=== PATIENT | female | born 1995 | race Caucasian/White ===

== ENCOUNTER 2017-03-22 23:49 | Emergency (ER) | payer SELFPAY ==
[~2017-03-22] VITALS: Ht 167.6 cm; Wt 60.8 kg
[~2017-03-22 23:49] MED LIST: FAMO-63 PO; IBUP-1060 PO; METO10TA81 PO
[2017-03-23 00:11] VITALS: BP 104/56
--- NOTE | 2017-03-23 00:15 | PHYS DOC ---
Past Medical History Past Medical History: No Pertinent History Past Surgical History: No Surgical History Smoking: Cigarettes Alcohol Use: None Drug Use: None Adult General Chief Complaint Chief Complaint: PLEURISY HPI HPI Patient is a 21 year old female who presents with chest pain. Chest pain started last Thursday on March 17. The pain has been sharp and constant in the center of her chest and is moderate. She was seen at [facility] emergency department on 03/20/2017 with negative EKG. She denies any recent travel. Little cough and no hemoptysis. Nausea no vomiting. Denies . Does smoke tobacco. Review of Systems Review of Systems Constitutional: Denies fever or chills Eyes: Denies change in visual acuity, redness, or eye pain HENT: Denies nasal congestion or sore throat Respiratory: slight cough but NO shortness of breath Cardiovascular: see HPI GI: Denies abdominal pain, nausea, vomiting, bloody stools or diarrhea : Denies dysuria or hematuria; "hard to urinate" Musculoskeletal: Denies back pain or joint pain Integument: Denies rash or skin lesions Neurologic: Denies headache, focal weakness or sensory changes Allergies Allergies Allergies Coded Allergies Type Severity Reaction Last Updated Verified No Known Drug Allergies 01/03/15 No Physical Exam Physical Exam Constitutional: Well developed, well nourished, no acute distress, non-toxic appearance. HENT: Normocephalic, atraumatic, bilateral external ears normal, oropharynx moist, no oral exudates, nose normal. Eyes: PERRLA, EOMI, conjunctiva normal, no discharge. Neck: Normal range of motion, no tenderness, supple, no stridor. Cardiovascular:Heart rate regular rhythm, no murmur Lungs & Thorax: Bilateral breath sounds clear to auscultation Abdomen: Bowel sounds normal, soft, no tenderness, no masses, no pulsatile masses. Skin: Warm, dry, no erythema, no rash. Back: No tenderness, no CVA tenderness. Extremities: No tenderness, no cyanosis, no clubbing, ROM intact, no edema. Neurologic: Alert and oriented X 3, normal motor function, normal sensory function, no focal deficits noted. Psychologic: Affect normal, judgement normal, mood normal. Current Patient Data Vital Signs Vital Signs Date Time Temp Pulse Resp B/P (MAP) Pulse Ox O2 Delivery O2 Flow Rate FiO2 03/23/17 00:11 97.8 66 16 104/56 (72) 100 Room Air 97.8 Lab Values Laboratory Tests Test 03/23/17 00:28 03/23/17 00:41 White Blood Count 6.6 x10^3/uL (4.0-11.0) Red Blood Count 4.83 x10^6/uL (3.50-5.40) Hemoglobin 14.8 g/dL (12.0-15.5) Hematocrit 42.3 % (36.0-47.0) Mean Corpuscular Volume 88 fL (79-100) Mean Corpuscular Hemoglobin 31 pg (25-35) Mean Corpuscular Hemoglobin Concent 35 g/dL (31-37) Red Cell Distribution Width 12.5 % (11.5-14.5) Platelet Count 180 x10^3/uL (140-400) Neutrophils (%) (Auto) 53 % (31-73) Lymphocytes (%) (Auto) 40 % (24-48) Monocytes (%) (Auto) 5 % (0-9) Eosinophils (%) (Auto) 2 % (0-3) Basophils (%) (Auto) 1 % (0-3) Neutrophils # (Auto) 3.5 x10^3uL (1.8-7.7) Lymphocytes # (Auto) 2.6 x10^3/uL (1.0-4.8) Monocytes # (Auto) 0.3 x10^3/uL (0.0-1.1) Eosinophils # (Auto) 0.1 x10^3/uL (0.0-0.7) Basophils # (Auto) 0.1 x10^3/uL (0.0-0.2) D-Dimer (Wanda) < 0.27 ug/mlFEU Urine Collection Type Unknown Urine Color Yellow Urine Clarity Clear Urine pH 8.0 Urine Specific Dahlgren 1.010 Urine Protein Negative mg/dL (NEG-TRACE) Urine Glucose (UA) Negative mg/dL (NEG) Urine Ketones (Stick) Negative mg/dL (NEG) Urine Blood Negative (NEG) Urine Nitrite Negative (NEG) Urine Bilirubin Negative (NEG) Urine Urobilinogen Dipstick 1.0 mg/dL (0.2 mg/dL) Urine Leukocyte Esterase Trace (NEG) Urine RBC Occ /HPF (0-2) Urine WBC 1-4 /HPF (0-4) Urine Squamous Epithelial Cells Mod /LPF Urine Bacteria Few /HPF (0-FEW) Urine Mucus Slight /LPF Sodium Level 140 mmol/L (136-145) Potassium Level 3.7 mmol/L (3.5-5.1) Chloride Level 105 mmol/L (98-107) Carbon Dioxide Level 26 mmol/L (21-32) Anion Gap 9 (6-14) Blood Urea Nitrogen 14 mg/dL (7-20) Creatinine 0.8 mg/dL (0.6-1.0) Estimated GFR (Cockcroft-Gault) 91.4 BUN/Creatinine Ratio 18 (6-20) Glucose Level 95 mg/dL (70-99) Calcium Level 9.0 mg/dL (8.5-10.1) Total Bilirubin 0.5 mg/dL (0.2-1.0) Aspartate Amino Transferase (AST) 17 U/L (15-37) Alanine Aminotransferase (ALT) 16 U/L (14-59) Alkaline Phosphatase 71 U/L (46-116) Creatine Kinase 63 U/L (26-192) Creatine Kinase MB (Mass) < 0.5 ng/mL (0.0-3.6) Creatine Kinase MB Relative Index 0.8 % (0-4) Troponin I Quantitative < 0.017 ng/mL (0.000-0.055) DF-Dxm-G-Type Natriuretic Peptide 27 pg/mL (0-124) Total Protein 6.6 g/dL (6.4-8.2) Albumin 4.0 g/dL (3.4-5.0) Albumin/Globulin Ratio 1.5 (1.0-1.7) Lipase 183 U/L (73-393) Serum Test, Qualitative Negative (NEG) POC Urine HCG, Qualitative Hcg negative (Negative) Laboratory Tests 03/23/17 00:28 Laboratory Tests 03/23/17 00:28 EKG EKG EKG interpreted by myself at 0003 AM: Normal sinus rhythm, rate of 62, no acute ST changes. Radiology/Procedures Radiology/Procedures Chest x-ray interpreted by myself at 0100 AM shows normal mediastinum, normal cardiac silhouette. No pleural effusion. No pneumothorax. Clear lung sabillon. Course & Med Decision Making Course & Med Decision Making Evaluated patient. EKG shows no acute changes. Reviewed the records from [facility] on March 20, 2017. EKG was performed no other evaluation. Will proceed with laboratory data as she has had persistent pain. She does smoke tobacco. No recent travel will check d-dimer. At 0125 AM: Lab is all unremarkable. Toradol 30 IV. Reviewed findings with patient. Home with follow up instructions. Naprosyn and tramadol for pain. Differential diagnosis for chest pain includes but is not limited to: Pericarditis, myocarditis, endocarditis, pneumothorax, pneumonia, aortic dissection, esophageal spasm, esophagitis, peptic ulcer disease, acute coronary syndrome, mediastinitis, Boerhaave syndrome, musculoskeletal chest wall pain, costochondritis, intercostal strain, rib fracture, pulmonary contusion, pneumonitis, pleural effusion, pericardial effusion, pericardial tamponode, and pleurisy. MACE Scoring: History: Highly suspicious (2 points); Moderately suspicious (1 point). Slightly suspicious (0 point). EKG: ST segment depression (2 points). Nonspecific repolarization disturbance ( 1 point). normal (0 point) Age: Greater than 65 (2 points), 65-45 (1 point); less than 45 years old (0 points). Risk factors:> 3 risk factors (2 points), 1-2 risk factors (one point), no risk factors (0 point). Troponin: > 2 times normal (2 points), 1-2 times normal (1 point) normal limits (0 point) Total score: ___1___ Score % pts MACE/n MACE Policy 0-3: 32% 1.9% 0.05% Discharge 4-6: 51% 413/3136 13% 1.3% Observation Risk management 7-10: 17% 518/1045 50% 2.8% Observation Treatment, CAGb PAT score for NSTEMI: Age 65: No=0; Yes=1 3 CAD risk factors: Family history of CAD, hypertension, hypercholesterolemia, diabetes, family history of CAD, or current smoker: No=0; Yes=1 Known CAD (stenosis 50%: No=0; Yes=1 ASA use in past 7 days: No=0; Yes=1 Severe angina ( 2 episodes in 24 hrs): No=0; Yes=[address] changes 0.5m: No=0; Yes=1 Positive cardiac marker: No=0; Yes=1 Score: 0 PERC RULE Criteria: Age < than 50 years-YES Heart rate < 100-YES Oxygen saturation > 95%-YES No hemoptysis-YES No estrogen use-YES No prior DVT or PE-YES No unilateral leg swelling-YES No surgery or trauma requiring hospitalization within the prior 4 weeks-YES PERC rule satisfied I have spoken with the patient and/or caregivers. I have explained the patient' s condition, diagnosis and treatment plan based on the information available to me at this time. I have answered the patient's and/or caregiver's questions and addressed any concerns. The patient and/or caregivers have as good an understanding of the patient's diagnosis, condition and treatment plan as can be expected at this point. The patient's condition is stable and appropriate for discharge from the emergency department. The patient will pursue further outpatient evaluation with the primary care physician or other designated or consulting physician as outlined in the discharge instructions. The patient and/or caregivers are agreeable to this plan of care and follow-up instructions have been explained in detail. The patient and/or caregivers have received these instructions in written format and have expressed an understanding of the discharge instructions. The patient and/or caregivers are aware that any significant change in condition or worsening of symptoms should prompt an immediate return to this or the closest emergency department or a call to 911. Dragon Disclaimer Dragon Disclaimer This electronic medical record was generated, in whole or in part, using a voice recognition dictation system. Departure Departure Impression: Primary Impression: Chest pain of uncertain etiology Disposition: 01 HOME, SELF-CARE Condition: STABLE Referrals: THEO ZAMORA Jr, MD (PCP) Patient Instructions: Chest Pain (Nonspecific), Pleurisy Additional Instructions: YOU WERE GIVEN A DOSE OF TORADOL HERE FOR THE PAIN. Scripts Tramadol Hcl/Acetaminophen (TRAMADOL-ACETAMINOPHN 37.5-325) 1 Each Tablet 1 TAB PO Q4-6HRS, #20 TAB Prov: PHILLY CAMARILLO MD 03/23/17 Naproxen (NAPROSYN) 500 Mg Tablet 1 TAB PO BID, #30 TAB 1 Refill Prov: PHILLY CAMARILLO MD 03/23/17 PHILLY CAMARILLO MD Mar 23, 2017 00:14
[2017-03-23 00:35] LABS: BASO # 0.1 x10^3/uL (0.0-0.2); BASO % 1 % (0-3); EOS % 2 % (0-3); HEMATOCRIT 42.3 % (36.0-47.0); HEMOGLOBIN 14.8 g/dL (12.0-15.5); LYMPH # 2.6 x10^3/uL (1.0-4.8); LYMPH % 40 % (24-48); MEAN CORPUSCULAR HEMOGLOBIN 31 pg (25-35); MEAN CORPUSCULAR HGB CONC 35 g/dL (31-37); MEAN CORPUSCULAR VOLUME 88 fL (79-100); MONO % 5 % (0-9); NEUT % 53 % (31-73); PLATELET COUNT 180 x10^3/uL (140-400); RED BLOOD COUNT 4.83 x10^6/uL (3.50-5.40); RED CELL DISTRIBUTION WIDTH 12.5 % (11.5-14.5); WHITE BLOOD COUNT 6.6 x10^3/uL (4.0-11.0)
[2017-03-23 00:47] LABS: BILIRUBIN,URINE NEGATIVE (NEG); GLUCOSE,URINE NEGATIVE (NEG); NEG OBC SER NEG; NITRITE,URINE NEGATIVE (NEG); POS OBC SER POS; PROTEIN,URINE NEGATIVE (NEG-TRACE)
[2017-03-23 00:55] LABS: CREATINE KINASE 63 U/L (26-192)
[2017-03-23 00:58] LABS: BACTERIA,URINE FEW /HPF (0-FEW); RBC,URINE OCC /HPF (0-2)
[2017-03-23 00:59] LABS: SQUAMOUS EPITHELIAL CELL,UR MOD /LPF
[2017-03-23 01:01] LABS: ALBUMIN/GLOBULIN RATIO 1.5 (1.0-1.7); CREATININE 0.8 mg/dL (0.6-1.0); GFR 91.4; POTASSIUM 3.7 mmol/L (3.5-5.1); TOTAL BILIRUBIN 0.5 mg/dL (0.2-1.0); TOTAL PROTEIN 6.6 g/dL (6.4-8.2)
[2017-03-23 01:13] LABS: CREATINE KINASE 62 U/L (26-192)
[2017-03-23 01:15] LABS: CKMB MASS < 0.5 ng/mL (0.0-3.6)
[2017-03-23] MEDS ORDERED: TRAM1TAB4 PO (01:29)
[2017-03-23] MEDS ORDERED: NAPR500T PO (01:29)
[2017-03-23] MEDS ORDERED: KETOROLAC 30 MG/ML INJ. IV ONE (01:30)
--- NOTE | 2017-03-23 06:10 | EKG ---
[facility] [address] [place] [address] Test Date: 2017-03-23 Test Time: 00:03:34 Pat Name: KARMEN LAW Department: Room: Gender: F Corporate Communications Manager: ANNA : 1995 Requested By: PHILLY CAMARILLO Order Number: [id number] Reading MD: Melissa Arizmendi Measurements Intervals [place] Rate: 62 P: 0 GA: 118 QRS: 20 QRSD: 74 T: 23 QT: 396 QTc: 404 Interpretive Statements SINUS RHYTHM NORMAL ECG Electronically Signed On 03-24-2017 19:24:31 CDT by Melissa Arizmendi
--- NOTE | 2017-03-23 07:23 | RAD ---
Portable chest, 03/23/2017: History: Chest pain The heart size and pulmonary vascularity are normal. The lungs are clear. There is no evidence of pleural fluid. IMPRESSION: No acute cardiopulmonary abnormality is detected.
== END 2017-03-23 01:57 | disposition home or self-care (01) ==
LOC: ER 23:49
DX: R07.9 Chest pain, unspecified (principal); F17.210 Nicotine dependence, cigarettes, uncomplicated
CPT/HCPCS: 36415; 71010; 80053; 81001; 81025; 82550; 82553; 83690; 83880; 84484; 84703; 85025; 85379; 87086; 93005; 96374; 99285; J1885

== ENCOUNTER 2018-11-29 15:07 | Observation (INO) | payer MEDICAID ==
[~2018-11-29] VITALS: Ht 165.1 cm; Wt 72.6 kg
[~2018-11-29 15:07] MED LIST changes: +NAPR-683 PO; +TRAM1TAB4 PO
[2018-11-29 16:15] LABS: BILIRUBIN,URINE NEGATIVE (NEG); CLARITY,URINE CLEAR; COLOR,URINE YELLOW; NITRITE,URINE NEGATIVE (NEG); PROTEIN,URINE NEGATIVE (NEG-TRACE)
[2018-11-29 16:26] LABS: BACTERIA,URINE FEW /HPF (0-FEW); RBC,URINE 0 /HPF (0-2); SQUAMOUS EPITHELIAL CELL,UR FEW /LPF; WBC,URINE RARE /HPF (0-4)
[2018-11-29] MEDS ORDERED: diphenhydrAMINE 50 MG/ML VIAL IVP ONE (16:30)
[2018-11-29] MEDS ORDERED: ONDANSETRON PF 4 MG/2 ML VIAL. IV PRN (16:30)
[2018-11-29] MEDS: IV RINGERS,LACTATED 1000ML 1,000 ML IV SCH ×2 (16:37→19:57)
[2018-11-29 16:51] LABS: BASO # 0.1 x10^3/uL (0.0-0.2); BASO % 1 % (0-3); EOS # 0.1 x10^3/uL (0.0-0.7); EOS % 2 % (0-3); HEMATOCRIT 36.4 % (36.0-47.0); HEMOGLOBIN 12.5 g/dL (12.0-15.5); LYMPH # 1.9 x10^3/uL (1.0-4.8); LYMPH % 25 % (24-48); MEAN CORPUSCULAR HEMOGLOBIN 29 pg (25-35); MEAN CORPUSCULAR HGB CONC 34 g/dL (31-37); MEAN CORPUSCULAR VOLUME 83 fL (79-100); MONO # 0.4 x10^3/uL (0.0-1.1); MONO % 5 % (0-9); NEUT # 5.4 x10^3uL (1.8-7.7); NEUT % 69 % (31-73); PLATELET COUNT 165 x10^3/uL (140-400); RED BLOOD COUNT 4.37 x10^6/uL (3.50-5.40); RED CELL DISTRIBUTION WIDTH 14.1 % (11.5-14.5); WHITE BLOOD COUNT 7.9 x10^3/uL (4.0-11.0)
[2018-11-29 19:56] LABS: ALBUMIN 2.8 g/dL (3.4-5.0); ALBUMIN/GLOBULIN RATIO 0.8 (1.0-1.7); CALCIUM 8.7 mg/dL (8.5-10.1); CREATININE 0.4 mg/dL (0.6-1.0); GFR 199.6; POTASSIUM 3.5 mmol/L (3.5-5.1); TOTAL BILIRUBIN 0.6 mg/dL (0.2-1.0); TOTAL PROTEIN 6.4 g/dL (6.4-8.2)
[2018-11-29] MEDS ORDERED: diphenhydrAMINE 50 MG/ML VIAL IVP PRN (20:30)
== END 2018-11-29 21:20 | disposition home or self-care (01) ==
LOC: 3 SO LND 15:07
PROVIDERS: ADMIT Obstetrics & Gynecology; ATTEND Obstetrics & Gynecology
DX: O21.2 Late vomiting of pregnancy (principal); O26.893 Other specified pregnancy related conditions, third trimester; R51 Headache; R10.2 Pelvic and perineal pain; N89.8 Other specified noninflammatory disorders of vagina; L29.9 Pruritus, unspecified; R12 Heartburn; Z3A.35 35 weeks gestation of pregnancy
CPT/HCPCS: 80053; 81001; 85025; 87086; 96361; 96374; 96375; G0378; G0379; J1200; J2405; J7120

== ENCOUNTER 2018-12-11 17:45 | Observation (INO) | payer MEDICAID ==
[2018-12-11] MEDS ORDERED: IV RINGERS,LACTATED 1000ML 1,000 ML IV SCH (17:56)
[2018-12-11 18:18] LABS: BARBITURATES NEG (NEG); BENZODIAZEPINES NEG (NEG); CANNABINOIDS NEG (NEG); COCAINE NEG (NEG); METHADONE NEG (NEG); OPIATES NEG (NEG); PHENCYCLIDINE NEG (NEG)
[2018-12-11 18:23] LABS: AMPHETAMINE/METHAMPHETAMINE NEG (NEG)
[2018-12-11 18:25] LABS: AMNIO PT NEGATIVE
== END 2018-12-11 19:00 | disposition home or self-care (01) ==
LOC: 3 SO LND 17:45
PROVIDERS: ADMIT Obstetrics & Gynecology; ATTEND Obstetrics & Gynecology
DX: O99.89 Other specified diseases and conditions complicating pregnancy, childbirth and the puerperium (principal); M54.9 Dorsalgia, unspecified; Z3A.36 36 weeks gestation of pregnancy
CPT/HCPCS: 36415; 80307; 84112; G0378; G0379

== ENCOUNTER 2018-12-15 14:50 | Observation (INO) | payer MEDICAID ==
[2018-12-15] MEDS: IV RINGERS,LACTATED 1000ML 1,000 ML IV SCH ×2 (14:49→16:54)
[2018-12-15 15:19] LABS: BARBITURATES NEG (NEG); BENZODIAZEPINES NEG (NEG); CANNABINOIDS NEG (NEG); COCAINE NEG (NEG); METHADONE NEG (NEG); OPIATES NEG (NEG); PHENCYCLIDINE NEG (NEG)
[2018-12-15 15:24] LABS: AMPHETAMINE/METHAMPHETAMINE NEG (NEG)
[2018-12-15 20:56] LABS: BILIRUBIN,URINE NEGATIVE (NEG); CLARITY,URINE CLEAR; COLOR,URINE YELLOW; NITRITE,URINE NEGATIVE (NEG); PH,URINE 7.5; PROTEIN,URINE NEGATIVE (NEG-TRACE)
[2018-12-15 21:19] LABS: BACTERIA,URINE FEW /HPF (0-FEW); SQUAMOUS EPITHELIAL CELL,UR MOD /LPF; WBC,URINE >40 /HPF (0-4)
== END 2018-12-15 21:20 | disposition home or self-care (01) ==
LOC: 3 SO LND 14:50
PROVIDERS: ADMIT Obstetrics & Gynecology; ATTEND Obstetrics & Gynecology
DX: O62.9 Abnormality of forces of labor, unspecified (principal); Z3A.37 37 weeks gestation of pregnancy
CPT/HCPCS: 80307; 81001; 87086; G0378; G0379; J7120

== ENCOUNTER 2018-12-16 16:03 | Observation (INO) | payer MEDICAID ==
[2018-12-16] MEDS: IV RINGERS,LACTATED 1000ML 1,000 ML IV SCH ×2 (16:57→19:05)
[2018-12-16 17:10] LABS: BILIRUBIN,URINE MODERATE (NEG); CLARITY,URINE CLEAR; COLOR,URINE ORANGE; NITRITE,URINE NEGATIVE (NEG); PROTEIN,URINE NEGATIVE (NEG-TRACE)
[2018-12-16 17:23] LABS: BACTERIA,URINE FEW /HPF (0-FEW); RBC,URINE 0 /HPF (0-2); SQUAMOUS EPITHELIAL CELL,UR OCC /LPF
[2018-12-16] MEDS: MAG HYDROX/ALUMINUM HYD/SIMETH 30 ML ORAL.SUSP PO PRN ×2 (18:05→21:07)
[2018-12-16] MEDS: ONDANSETRON PF 4 MG/2 ML VIAL. IV PRN (18:05)
[2018-12-16] MEDS ORDERED: diphenhydrAMINE HCL 25 MG CAPSULE PO PRN (20:00)
[2018-12-17] MEDS: IV RINGERS,LACTATED 1000ML 1,000 ML IV SCH ×2 (01:51→08:52)
[2018-12-17] MEDS: ONDANSETRON PF 4 MG/2 ML VIAL. IV PRN ×2 (02:16→09:02)
[2018-12-17] MEDS ORDERED: FAMOTIDINE 20 MG TABLET. PO ONE (08:45)
[2018-12-17] MEDS ORDERED: guaiFENesin ORAL 200 MG/10 ML LIQUID. PO PRN ×2 (08:45)
[2018-12-17] MEDS ORDERED: FAMOTIDINE 20 MG TABLET. PO SCH (09:00)
--- NOTE | 2018-12-17 12:48 | PDOC1 ---
OB - History Hx of Present Care: Limited Care Ultrasounds: Normal mid trimester US Obstetrical Complications: None Medical Complications: Other (Dehydration) Past Family/Social History * Past Medical, Surgical, Family and Obstetric Histories reviewed from chart. Rubella: Immune RPR/VDRL: Negative GBS Status: Negative HBsAG: Negative OB - Chief Complaint & HPI Date of Admission: Date of Admission: Dec 16, 2018 at 16:03 Chief Complaint/History : 3 Para: 2 EGA: 38 Reason for admission: observation, other (Dehydration with nausea and vomiting) Admission Nurse Assessment Rev: Yes OB - Admission Exam Physical Exam HEENT: Normal Heart: Regular Rate Lungs: Clear Abdomen: Gravid, Non tender, Soft Extremities: No tenderness or swelling Reflexes: Normal Cervical Dilatation: 3cm Effacement: 75% Station: -3 Membranes: Intact Heart Rate: Normal Accelerations: Accelerations Present Decelerations: No decelerations Contractions on Admission: None Text A: 37 wks IUP Dehydration with nausea/vomiting P: Observation for IV fluids and antinausea medication. Will d/c home when tolerating regular diet. THEO ZAMORA Jr, MD Dec 17, 2018 12:48
== END 2018-12-17 16:07 | disposition home or self-care (01) ==
LOC: 3 SO LND 16:03
PROVIDERS: ADMIT Obstetrics & Gynecology; ATTEND Obstetrics & Gynecology
DX: O21.2 Late vomiting of pregnancy (principal); O99.284 Endocrine, nutritional and metabolic diseases complicating childbirth; E86.0 Dehydration; Z3A.37 37 weeks gestation of pregnancy
CPT/HCPCS: 81001; 87086; 96361; 96374; 96376; G0378; G0379; J2405; J7120; Q0163

== ENCOUNTER 2018-12-20 20:06 | Observation (INO) | payer MEDICAID ==
[2018-12-20 20:36] LABS: BILIRUBIN,URINE SMALL (NEG); CLARITY,URINE CLOUDY; COLOR,URINE AMBER; NITRITE,URINE NEGATIVE (NEG); PH,URINE 6.5; PROTEIN,URINE 30 mg/dL (NEG-TRACE)
[2018-12-20 20:42] LABS: BACTERIA,URINE MANY /HPF (0-FEW); RBC,URINE OCC /HPF (0-2); SQUAMOUS EPITHELIAL CELL,UR MANY /LPF; WBC,URINE TNTC /HPF (0-4)
[2018-12-20 20:43] LABS: AMPHETAMINE/METHAMPHETAMINE NEG (NEG); BARBITURATES NEG (NEG); BENZODIAZEPINES NEG (NEG); CANNABINOIDS NEG (NEG); COCAINE NEG (NEG); METHADONE NEG (NEG); OPIATES NEG (NEG); PHENCYCLIDINE NEG (NEG); YEAST,URINE PRESENT /HPF
[2018-12-20] MEDS ORDERED: IV RINGERS,LACTATED 1000ML 1,000 ML IV SCH (21:00)
== END 2018-12-20 21:48 | disposition home or self-care (01) ==
LOC: 3 SO LND 20:06
PROVIDERS: ADMIT Obstetrics & Gynecology; ATTEND Obstetrics & Gynecology
DX: O62.9 Abnormality of forces of labor, unspecified (principal); Z3A.38 38 weeks gestation of pregnancy
CPT/HCPCS: 80307; 81001; 87086; G0378; G0379